=== PATIENT | female | born 1975 ===

== ENCOUNTER 2016-11-25 17:30 | Observation (INO) | payer MEDICAID ==
[2016-11-25 17:30] VITALS: BMI 33.6
--- NOTE | 2016-11-25 17:54 | ED PDOC ---
HPI: Abdomen Time Seen by Provider: 11/25/16 17:41 Chief Complaint (Nursing): Shortness Of Breath History Per: Patient Onset/Duration Of Symptoms: Other (1 month) Location Of Pain/Discomfort: LUQ, LLQ Quality Of Discomfort: Cramping Associated Symptoms: Nausea. denies: Vomiting, Diarrhea, Back Pain, Urinary Symptoms Exacerbating Factors: None Alleviating Factors: None Additional Complaint(s): Left sided lower and mid abd pain intermittently x 1 month worse over past 2 days. Radiates to left leg. Nausea but no vomiting or diarrhea. No urinary sxs. Abnormal Vaginal Bleeding: No Past Medical History Vital Signs: Last Vital Signs Temp 98.4 F 11/25/16 17:39 Pulse 70 11/25/16 17:39 Resp 18 11/25/16 17:39 BP 131/72 11/25/16 17:39 Pulse Ox 100 11/25/16 17:54 - Medical History PMH: Asthma - Surgical History Surgical History: - Family History Family History: States: Diabetes - Home Medications Home Medications: Ambulatory Orders Medication Instructions Recorded Vitamins6 [ 1 tab PO DAILY 11/17/14 Vitamin] Glyburide 2.5 mg PO BID 12/13/14 - Allergies Allergies/Adverse Reactions: Allergies Allergy/AdvReac Type Severity Reaction Status Date / Time No Known Allergies Allergy Verified 12/13/14 04:26 Review of Systems Constitutional: Negative for: Fever Gastrointestinal: Positive for: Nausea, Abdominal Pain Genitourinary Female: Negative for: Dysuria, Frequency, Vaginal Bleeding Musculoskeletal: Negative for: Back Pain Physical Exam - Physical Exam Appears: Positive for: Non-toxic, No Acute Distress Skin: Positive for: Normal Color, Warm, DRY Cardiovascular/Chest: Positive for: Regular Rate, Rhythm Respiratory: Positive for: CNT, Normal Breath Sounds Gastrointestinal/Abdominal: Positive for: Bowel Sounds, Soft, Tenderness (LLQ and LUQ) Back: Negative for: L CVA Tenderness, R CVA Tenderness Extremity: Negative for: Calf Tenderness, Swelling - Laboratory Results Result Diagrams: 11/25/16 18:10 - ECG O2 Sat by Pulse Oximetry: 100 Disposition - Clinical Impression Clinical Impression: Abdominal pain - Patient ED Disposition Is Patient to be Admitted: Transfer of Care - Disposition Disposition: Transfer of Care Disposition Time: 18:59 Condition: FAIR Patient Signed Over To: Giovani Matos
[2016-11-25 18:22] LABS: BASO # 0.1 K/uL (0.0-0.2); BASO % 1.1 % (0.0-2.0); EOS # 0.3 K/uL (0.0-0.7); EOS % 3.3 % (0.0-4.0); HEMOGLOBIN 12.7 g/dL (12.0-16.0); LYMPH # 3.3 K/uL (1.0-4.3); MEAN CELL VOLUME 84.3 fl (81.0-99.0); MEAN CORPUSCULAR HEMOGLOBIN 28.2 pg (27.0-31.0); MEAN CORPUSCULAR HGB CONC 33.5 g/dL (33.0-37.0); MEAN PLATELET VOLUME 8.9 fl (7.2-11.7); MONO % 10.8 % (0.0-10.0); NEUT # 4.9 K/uL (1.8-7.0); NEUT % 50.8 % (50.0-75.0); RBC 4.51 Mil/uL (3.80-5.20); RED CELL DISTRIBUTION WIDTH 14.7 % (11.5-14.5); WHITE BLOOD COUNT 9.6 K/uL (4.8-10.8)
[2016-11-25 18:59] LABS: ALB/GLOB RATIO 1.4 (1.0-2.1); ALBUMIN 4.4 g/dL (3.5-5.0); ALT/SGPT 28 U/L (9-52); AST/SGOT 22 U/L (14-36); BLOOD UREA NITROGEN 10 mg/dl (7-17); CALCIUM 9.6 mg/dL (8.4-10.2); GFR AFRICAN-AMERICAN > 60; GFR NON-AFRICAN AMERICAN > 60
--- NOTE | 2016-11-25 20:50 | ED PDOC ---
- Laboratory Results Result Diagrams: 11/25/16 18:10 11/25/16 18:10 - ECG O2 Sat by Pulse Oximetry: 100 (RA) Pulse Ox Interpretation: Normal Medical Decision Making Medical Decision Making: --Patient signed out to provider by Darryn Cohn MD at 19:00 pending ultrasound --Admit to ED-OBS for abdominal pain as of 19:00 0153: CT EXAM: US Pelvis, Transvaginal CLINICAL HISTORY: 41 years old, female; Pain; Pelvic pain; Patient HX: Pain for 1 month; Additional info: Left sided pain TECHNIQUE: Real-time transvaginal pelvic ultrasound (complete) with image documentation. Transvaginal imaging was used for better evaluation of the endometrium and adnexa. COMPARISON: No relevant prior studies available. FINDINGS: Uterus/cervix: Small nabothian cysts in the cervix. Normal endometrial stripe thickness. No myometrial mass. Right ovary: Unremarkable. No mass. Normal blood flow. Left ovary: Unremarkable. No mass. Normal blood flow. Free fluid: Small amount of fluid in the pelvic cul-de-sac. This is most likely physiologic fluid. IMPRESSION: No acute findings. Provider explained benign nature of CT findings at length to patient. Patient was referred for follow up with clinic for possible specialist referral. Diagnosis: abdominal pain. Condition is stable. Scribe Attestation: Documented by Yesenia Salinas, acting as a scribe for Giovani Matos MD Provider Scribe Attestation: All medical record entries made by the Scribe were at my direction and personally dictated by me. I have reviewed the chart and agree that the record accurately reflects my personal performance of the history, physical exam, medical decision making, and the department course for this patient. I have also personally directed, reviewed, and agree with the discharge instructions and disposition. Disposition - Clinical Impression Clinical Impression: Abdominal pain - POA Present On Arrival: None - Disposition Disposition: Routine/Home Disposition Time: 19:00 Condition: STABLE ED OBSERVATION Date of observation admission: 11/25/16 Time of observation admission: 19:00 - Observation admission statement Patient is being placed in observation because:: Abdominal Pain - Progress Note Progress Note: 11/25/16 Time: 20:30 --Patient is resting comfortably, vital signs stable Time: 22:00 --Patient is resting comfortably, vital signs stable Time: 22:01 Transvaginal Ultrasound: FINDINGS: Uterus/cervix: Small nabothian cysts in the cervix. Normal endometrial stripe thickness. No myometrial mass. Right ovary: Unremarkable. No mass. Normal blood flow. Left ovary: Unremarkable. No mass. Normal blood flow. Free fluid: Small amount of fluid in the pelvic cul-de-sac. This is most likely physiologic fluid. IMPRESSION: No acute findings. Time: 22:38 --Pending CT Abdomen/Pelvis PO and IV contrast 11/25/16 23:25 Time: 23:30 --Patient is resting comfortably, vital signs stable 11/26/16 00:55 Time: 0100: --Patient is resting comfortably, vital signs stable 11/26/16 02:30 Time: 0230: --Patient is resting comfortably, vital signs stable 11/26/16 04:00 Time: 0400: --Patient is resting comfortably, vital signs stable 11/26/16 05:30 Time: 0530: --Patient is resting comfortably, vital signs stable
[2016-11-25] MEDS ORDERED: Iohexol 240 (50 ml) PO ONE (22:38)
[2016-11-25] MEDS ORDERED: Iohexol 240 (50 ml) ONE (22:40)
[2016-11-26] MEDS ORDERED: Iohexol 300 100 ML IJ ONE (01:10)
[2016-11-26] MEDS ORDERED: Sodium Chloride 0.9% 50 ML IV ONE (01:10)
--- NOTE | 2016-11-26 01:41 | CT ---
EXAM: CT Abdomen and Pelvis With Intravenous Contrast CLINICAL HISTORY: 41 years old, female; Pain; Abdominal pain; Localized; Left; Prior surgery; Surgery date: 6+ months; Surgery type: C- section x3; Additional info: Abd pain TECHNIQUE: Axial computed tomography images of the abdomen and pelvis with intravenous contrast. This CT exam was performed using one or more of the following dose reduction techniques: automated exposure control, adjustment of the mA and/or kV according to patient size, and/or use of iterative reconstruction technique. Coronal and sagittal reformatted images were created and reviewed. CONTRAST: 95 mL of [id number] administered intravenously. COMPARISON: None FINDINGS: Lower thorax: The bilateral lung bases are clear. ABDOMEN: Liver: No acute findings. Gallbladder and bile ducts: The gallbladder is decompressed. No calcified stones. No significant intra- or extrahepatic biliary ductal dilation. Pancreas: Enhances homogeneously. No ductal dilation. No discrete mass. Spleen: No acute findings. Adrenals: No acute findings. Kidneys and ureters: No acute findings. No hydronephrosis or renal calculi. No discrete solid mass. PELVIS: Bladder: No acute findings. Reproductive: No acute findings. Appendix: The air filled appendix is of normal caliber (series 2, image 50; series 601, image 58) . ABDOMEN and PELVIS: Stomach and bowel: No obstruction. No mucosal thickening. Peritoneum: No significant fluid collection. No free air. Lymph nodes: No pathologically enlarged lymph nodes. Vasculature: Unremarkable. Bones: No acute fracture. IMPRESSION: No acute intra-abdominal pathology, as detailed above.
--- NOTE | 2016-11-26 08:30 | US ---
HISTORY: left sided pain COMPARISON: Transvaginal pelvic ultrasound performed 05/19/14 TECHNIQUE: Transvaginal pelvic ultrasound FINDINGS: UTERUS: Measures 8.3 x 5.4 x 4.6 cm. Anteverted. Heterogeneous echotexture limits evaluation for small masses or fibroids. ENDOMETRIUM: Measures 4 mm in diameter. CERVIX: Small nabothian cysts. RIGHT OVARY: Measures 2.9 x 2.6 x 1.0 cm. Blood flow is demonstrated. LEFT OVARY: Measures 2.5 x 2.1 x 1.5 cm. Blood flow is demonstrated. FREE FLUID: Small pelvic free fluid. OTHER FINDINGS: None. IMPRESSION: No acute findings. See above. Preliminary impression was provided by virtual [facility].
[2016-11-26 11:57] VITALS: BP 129/65; PULSE 74; RESP 16; TEMP 98.2; O2SAT 100
--- NOTE | 2016-12-02 08:21 | CARD ---
APPROVED REPORT EKG Measurement Heart [id number] <Conclusion> Normal sinus rhythm Possible Left atrial enlargement Borderline ECG
== END 2016-11-26 02:00 | disposition home or self-care (01) ==
LOC: H.ER 17:30 → H.EROBSV 19:00
PROVIDERS: ADMIT Emergency Medicine; ATTEND Emergency Medicine
DX: R10.9 Unspecified abdominal pain (principal); J45.909 Unspecified asthma, uncomplicated

== ENCOUNTER 2017-04-13 14:45 | Inpatient (IN) | payer MEDICAID ==
[2017-04-13 14:45] VITALS: BMI 33.6
[2017-04-13] MEDS ORDERED: Sodium Chloride 0.9% 1,000 ML IV STA ×2 (14:59→16:37)
[2017-04-13] MEDS ORDERED: Albuterol-Ipratrop 3 mg / 0.5 (3 ml) UD IH STA (14:59)
--- NOTE | 2017-04-13 15:10 | ED PDOC ---
HPI: SOB/CHF/COPD Time Seen by Provider: 04/13/17 14:51 Chief Complaint (Nursing): Shortness Of Breath Chief Complaint (Provider): Shortness of breath History Per: Patient History/Exam Limitations: no limitations Onset/Duration Of Symptoms: Days (4) Current Symptoms Are (Timing): Still Present Additional Complaint(s): Patient is a 41 y/o female with a past medical history of asthma referred by a [facility] to the ED for evaluation of her shortness of breath, wheezing, and productive cough that has been ongoing for four days. Also reports a fever and production of yellow sputum. Notes no improvement from nebulizer provided in [facility]. Denies any other complaints. PCP: Dr. Hong Past Medical History Reviewed: Historical Data, Nursing Documentation, Vital Signs Vital Signs: Last Vital Signs Temp 98.6 F 04/13/17 14:46 Pulse 96 H 04/13/17 14:46 Resp 20 04/13/17 14:46 BP 115/58 L 04/13/17 14:46 Pulse Ox 98 04/13/17 15:18 - Medical History PMH: Asthma - Surgical History Surgical History: No Surg Hx, - Family History Family History: States: Diabetes - Social History Current smoker - smoking cessation education provided: No Ex-Smoker (has not smoked in the last 12 months): No Alcohol: Social Drugs: Denies - Immunization History Hx Tetanus Toxoid Vaccination: No Hx Influenza Vaccination: No Hx Pneumococcal Vaccination: No - Home Medications Home Medications: Ambulatory Orders Medication Instructions Recorded Vitamins6 [ 1 tab PO DAILY 11/17/14 Vitamin] Glyburide 2.5 mg PO BID 12/13/14 Dicyclomine [Bentyl] 20 mg PO Q12 PRN #20 tab 11/26/16 - Allergies Allergies/Adverse Reactions: Allergies Allergy/AdvReac Type Severity Reaction Status Date / Time No Known Allergies Allergy Verified 12/13/14 04:26 Review of Systems ROS Statement: Except As Marked, All Systems Reviewed And Found Negative Constitutional: Positive for: Fever Respiratory: Positive for: Cough (productive), Shortness of Breath, Sputum ( yellow), Wheezing Physical Exam - Reviewed Nursing Documentation Reviewed: Yes Vital Signs Reviewed: Yes - Physical Exam Appears: Positive for: Well, Non-toxic, No Acute Distress Head Exam: Positive for: ATRAUMATIC, NORMAL INSPECTION, NORMOCEPHALIC Skin: Positive for: Normal Color, Warm, Dry Eye Exam: Positive for: Normal appearance ENT: Positive for: Pharyngeal Erythema. Negative for: Tonsillar Exudate Neck: Positive for: Normal Cardiovascular/Chest: Positive for: Regular Rate, Rhythm. Negative for: Murmur Respiratory: Positive for: Decreased Breath Sounds, Rhonchi. Negative for: Accessory Muscle Use, Wheezing, Respiratory Distress Gastrointestinal/Abdominal: Positive for: Normal Exam, Soft. Negative for: Tenderness Extremity: Positive for: Normal ROM. Negative for: Pedal Edema, Swelling Neurologic/Psych: Positive for: Alert, Oriented (x3). Negative for: Motor/ Sensory Deficits - Laboratory Results Result Diagrams: 04/13/17 15:43 04/13/17 15:43 - ECG O2 Sat by Pulse Oximetry: 100 (RA) Pulse Ox Interpretation: Normal - Progress Re-evaluation Time: 16:38 Condition: Improved - Critical Care Total Time (In Min): 30 Documented Critical Care: Time excludes all time spent performint seperately billable procedures Medical Decision Making Medical Decision Makin:59 Initial Impression: Shortness of breath Initial Plan: Labs: CMP, CBC ED Urine Chest x-ray Albuterol 3 mL IH MethylPrednisolone 125 mg IVP Normal Saline 1 L IV Peak flow assessment pre and post treatment Influenza test Rapid strep group test Reevaluation Scribe Attestation: Documented by Stephy Quinonez acting as a scribe for Darryn Cohn MD. Provider Scribe Attestation: All medical record entries made by the Scribe were at my direction and personally dictated by me. I have reviewed the chart and agree that the record accurately reflects my personal performance of the history, physical exam, medical decision making, and the department course for this patient. I have also personally directed, reviewed, and agree with the discharge instructions and disposition. Disposition - Clinical Impression Clinical Impression: Pneumonia, Sepsis - Patient ED Disposition Is Patient to be Admitted: Yes - Disposition Disposition Time: 16:38 Condition: FAIR Forms: [employer] ([place]) - Pt Status Changed To: Hospital Disposition Of: Inpatient - Admit Certification Admit to Inpatient:: After my assessment, the patient will require hospitalization for at least two midnights. This is because of the severity of symptoms shown, intensity of services needed, and/or the medical risk in this patient being treated as an outpatient. - POA Present On Arrival: None
[2017-04-13] MEDS ORDERED: Albuterol-Ipratrop 3 mg / 0.5 (3 ml) UD ONE (15:24)
[2017-04-13 16:03] LABS: BASO # 0.1 K/uL (0.0-0.2); BASO % 0.6 % (0.0-2.0); EOS # 0.4 K/uL (0.0-0.7); EOS % 4.4 % (0.0-4.0); HEMATOCRIT 36.7 % (34.0-47.0); LYMPH # 2.4 K/uL (1.0-4.3); LYMPH % 24.3 % (20.0-40.0); MEAN CELL VOLUME 82.5 fl (81.0-99.0); MEAN CORPUSCULAR HEMOGLOBIN 27.1 pg (27.0-31.0); MEAN CORPUSCULAR HGB CONC 32.9 g/dL (33.0-37.0); MEAN PLATELET VOLUME 8.6 fl (7.2-11.7); MONO # 0.8 K/uL (0.0-0.8); NEUT # 6.2 K/uL (1.8-7.0); NEUT % 62.7 % (50.0-75.0); RED CELL DISTRIBUTION WIDTH 15.2 % (11.5-14.5); WHITE BLOOD COUNT 9.9 K/uL (4.8-10.8)
[2017-04-13 16:12] LABS: ALB/GLOB RATIO 1.3 (1.0-2.1); ALKALINE PHOSPHATASE 86 U/L (38-126); ALT/SGPT 29 U/L (9-52); AST/SGOT 23 U/L (14-36); BILIRUBIN,TOTAL 0.3 mg/dl (0.2-1.3); BLOOD UREA NITROGEN 9 mg/dl (7-17); CALCIUM 9.5 mg/dL (8.4-10.2); CARBON DIOXIDE 19 mmol/L (22-30); CHLORIDE 110 mmol/L (98-107); GFR AFRICAN-AMERICAN > 60; GLUCOSE,RANDOM 113 mg/dL (65-105); POTASSIUM 3.8 MMOL/L (3.6-5.0); SODIUM 143 mmol/l (132-148); TOTAL PROTEIN 7.9 G/DL (6.3-8.2)
[2017-04-13] MEDS ORDERED: Azithromycin 500 MG in Sodium Chloride 0.9% 250 ML IVPB STA (16:13)
[2017-04-13] MEDS ORDERED: cefTRIAXone IV 1 gm in Dextros 50 ML IVPB STA (16:13)
--- NOTE | 2017-04-13 16:13 | RAD ---
HISTORY: cough COMPARISON: Chest radiograph dated 03/19/2014 TECHNIQUE: Chest PA and lateral FINDINGS: LUNGS: Focal right lower lobe infiltrate projecting between the right posterior 7th and 8th ribs. PLEURA: No significant pleural effusion identified. No pneumothorax apparent. CARDIOVASCULAR: Normal. OSSEOUS STRUCTURES: No significant abnormalities. VISUALIZED UPPER ABDOMEN: Normal. OTHER FINDINGS: None. IMPRESSION: Focal right lower lobe infiltrate. Findings conveyed to Dr. Cohn by Dr. Grissom at 4:10 p.m. on 04/13/2017.
[2017-04-13] MEDS ORDERED: Azithromycin 500 MG IV IVPB ONE (16:24)
[2017-04-13] MEDS ORDERED: cefTRIAXone IV 1 gm in Dextros 0 ML IVPB ONE (16:24)
[2017-04-13 16:30] LABS: VENOUS BLOOD GAS BASE EXCESS -3.6 mmol/L (0.0-2.0); VENOUS BLOOD GAS PCO2 33 mmHg (40-60)
[2017-04-13] MEDS ORDERED: Piperacillin/Tazobact 3.375 GM in Sodium Chloride 0.9% 100 ML IVPB STA (16:35)
--- NOTE | 2017-04-13 20:14 | CP.PCM.HP ---
History of Present Illness - History of Present Illness History of Present Illness: 41 y/o F with PMHx remarkable for metabolic syndrome and intermittent asthma was sent from [facility] to [facility] ED with 4 day history of progressive dry cough associated with shortness of breath. Pt reports cough started about Monday afternoon and has worsened daily. Cough was dry originally, became productive for 2 days, then returned to being dry again today. She reports she had several days of fever reaching approx 100.9 F with URI symptoms. Cough is associated the chest tightness, she attempted her albuterol inhaler at home every 4 hours without improvement. She reports her kids and all had a cough/URI last week. Symptoms worsened so she then went to [facility] for evaluation. At the [facility] she was given Duo-Neb treatment which failed to improve her symptoms. After failure of improvement, she was sent via EMS to ED for further evalaution and treatment. At bedside examination, pt still complains of SOB, with dry cough, mild chest tightness. She denies any fever/chills, lightheadedness, palpitations , N/V/D/C, urinary symptoms, numbness, tingling. ROS: as per HPI, 10 systems reviewed, found to be negative PMD: Dr. Ashleigh Hong PMHx: intermittent asthma, metabolic syndrome, Vit D def Meds: Ventolin HFA 108 ALL: NKDA PHosphx: denies any recent hospitalizations. Denies any hx of intubation or hospitalizations for asthma or pneumonia PSurghx: foot surgery age 10, x3 OBhx: LMP: April 03, 2017, monthly, moderate bleeds SocialHx: former smoker, quit 3 years ago, <0.5PPD, social ETOH, denies drug abuse -lives at home with and kids -code status: full code -next of kin: mother, Su Lemos FamilyHx: denies hx of CA, CAD, PA, stroke ED COURSE: Vitals: T 98.6, BP 115/58, HR 96, RR 20, POX 100% RA Labs: CBC: 9.9>12.1/36.7<305 CMP: elevated CO2, BUN/Cr: wnl Lactate: 2.9 VBG: PO2: 67, PCO2 33 Imaging: CXR: focal right lower lobe infiltrate Treatment: Ceftriaxone 1gm Vancomycin 1gm Zosyn 3.375 Azithromycin 500mg 2L NS Present on Admission - Present on Admission Any Indicators Present on Admission: No Past Patient History - Past Social History Alcohol: Social Drugs: Denies - CARDIAC Hx Cardiac Disorders: No - PULMONARY Hx Respiratory Disorders: Yes (ASTHMA) - NEUROLOGICAL Hx Neurological Disorder: No - HEENT Hx HEENT Problems: No - RENAL Hx Chronic Kidney Disease: No - ENDOCRINE/METABOLIC Hx Endocrine Disorders: No - HEMATOLOGICAL/ONCOLOGICAL Hx Blood Disorders: No - INTEGUMENTARY Hx Dermatological Problems: No - MUSCULOSKELETAL/RHEUMATOLOGICAL Hx Musculoskeletal Disorders: No - GENITOURINARY/GYNECOLOGICAL Hx Genitourinary Disorders: No - PSYCHIATRIC Hx Psychophysiologic Disorder: No - SURGICAL HISTORY Hx Tubal Ligation: Yes (2014) Other/Comment: FOOT SX; thryiod lump bx - ANESTHESIA Hx Anesthesia: Yes Hx Anesthesia Reactions: No Meds Allergies/Adverse Reactions: Allergies Allergy/AdvReac Type Severity Reaction Status Date / Time No Known Allergies Allergy Verified 12/13/14 04:26 Physical Exam - Constitutional Appears: Non-toxic, No Acute Distress - Head Exam Head Exam: ATRAUMATIC, NORMOCEPHALIC - Eye Exam Eye Exam: EOMI. absent: Conjunctival injection, Scleral icterus Pupil Exam: PERRL - ENT Exam ENT Exam: Mucous Membranes Moist - Expanded ENT Exam Expanded Mouth exam: normal external inspection Throat exam: Normal Inspection. absent: Post Pharyngeal Edema, Post Pharyngeal Erythema, Tonsillar Erythema - Neck Exam Neck exam: Positive for: Full Rom. Negative for: Lymphadenopathy - Respiratory Exam Respiratory Exam: Decreased Breath Sounds, Rhonchi (rhonci r lobe), NORMAL BREATHING PATTERN. absent: Accessory Muscle Use, Chest Wall Tenderness, Clear to Auscultation Bilateral, Rales, Wheezes, Respiratory Distress - Cardiovascular Exam Cardiovascular Exam: REGULAR RHYTHM, RRR, +S1, +S2. absent: Gallop, JVD, Rubs, Systolic Murmur - GI/Abdominal Exam GI & Abdominal Exam: Normal Bowel Sounds, Soft. absent: Tenderness - Extremities Exam Extremities exam: Positive for: normal inspection, pedal pulses present. Negative for: calf tenderness, pedal edema, tenderness - Neurological Exam Neurological exam: Alert, CN II-XII Intact, Oriented x3, Reflexes Normal - Psychiatric Exam Psychiatric exam: Normal Affect, Normal Mood - Skin Skin Exam: Dry, Intact, Normal Color, Warm Results - Vital Signs Recent Vital Signs: Last Vital Signs Temp 98.2 F 04/13/17 19:57 Pulse 82 04/13/17 19:57 Resp 14 04/13/17 19:57 BP 111/71 04/13/17 19:57 Pulse Ox 99 04/13/17 19:57 - Labs Result Diagrams: 04/13/17 15:43 04/13/17 15:43 Labs: Laboratory Results - last 24 hr 04/13/17 04/13/17 04/13/17 15:00 15:00 15:43 WBC 9.9 RBC 4.45 Hgb 12.1 Hct 36.7 MCV 82.5 MCH 27.1 MCHC 32.9 L RDW 15.2 H Plt Count 305 MPV 8.6 Neut % (Auto) 62.7 Lymph % (Auto) 24.3 Bennett % (Auto) 8.0 Eos % (Auto) 4.4 H Baso % (Auto) 0.6 Neut # 6.2 Lymph # 2.4 Bennett # 0.8 Eos # 0.4 Baso # 0.1 pO2 VBG pH VBG pCO2 VBG HCO3 VBG Total CO2 VBG O2 Sat (Calc) VBG Base Excess VBG Potassium A-a O2 Difference Glucose Lactate FiO2 Sodium Potassium Chloride Carbon Dioxide Anion Gap BUN Creatinine Est GFR ( Amer) Est GFR (Non-Af Amer) Random Glucose Calcium Total Bilirubin AST ALT Alkaline Phosphatase Total Protein Albumin Globulin Albumin/Globulin Ratio Venous Blood Potassium Influenza Typ A,B (EIA) Negative for flu a/b Grp A Beta Strep Ag Negative 04/13/17 04/13/17 15:43 16:27 WBC RBC Hgb Hct MCV MCH MCHC RDW Plt Count MPV Neut % (Auto) Lymph % (Auto) Bennett % (Auto) Eos % (Auto) Baso % (Auto) Neut # Lymph # Bennett # Eos # Baso # pO2 67 H VBG pH 7.40 VBG pCO2 33 L VBG HCO3 22.0 VBG Total CO2 21.4 L VBG O2 Sat (Calc) 97.6 H VBG Base Excess -3.6 L VBG Potassium 3.3 L A-a O2 Difference 41.0 Glucose 109 H Lactate 2.9 H FiO2 21.0 Sodium 143 141.0 Potassium 3.8 Chloride 110 H 107.0 Carbon Dioxide 19 L Anion Gap 18 BUN 9 Creatinine 0.6 L Est GFR ( Amer) > 60 Est GFR (Non-Af Amer) > 60 Random Glucose 113 H Calcium 9.5 Total Bilirubin 0.3 AST 23 ALT 29 Alkaline Phosphatase 86 Total Protein 7.9 Albumin 4.5 Globulin 3.4 Albumin/Globulin Ratio 1.3 Venous Blood Potassium 3.3 L Influenza Typ A,B (EIA) Grp A Beta Strep Ag Assessment & Plan - Assessment and Plan (Free Text) Assessment: 41 y/o female with PMHx of metabolic syndrome and intermittent asthma admitted for community acquired pneumonia and lactic acidosis. Plan: 1) Community Acquired Pneumonia -CXR exhibits focal right lower lobe infiltrate -Pt does not meet SIRS criteria -afebrile -qSOFA: 0 -WBC: wnl -Platelets: wnl -Lactate 2.6->3.6 -BUN/Cr: wnl -influenza/strep: neg/neg -Procalcitonin: pending -f/u blood/throat cultures -s/p Vancomycin, Ceftriaxone, Azithromycin, Zosyn in ED -s/p 2L NS in ED -Duo-Neb 3mL PRN -Tyleonol 650mg PRN fever -Ceftriaxone 1gm IV QD -Azithromycin 500mg IV QD -monitor vitals -f/u am CBC/CMP 2) Intermittent Asthma -Duo-Neb PRN Q6H 3) Diet -regular diet 4) DVT Ppx: -SCDs overnight -CrCl -Lovenox 40mg SC QD 5) Code Status -full code
[2017-04-13 20:56] LABS: VENOUS BLOOD GAS BASE EXCESS -4.6 mmol/L (0.0-2.0); VENOUS BLOOD GAS PCO2 32 mmHg (40-60); VENOUS BLOOD PH 7.39 (7.32-7.43)
[2017-04-14] MEDS: Albuterol-Ipratrop 3 mg / 0.5 (3 ml) UD INH PRN (06:23)
[2017-04-14 06:24] LABS: HEMATOCRIT 33.9 % (34.0-47.0); MEAN CELL VOLUME 82.8 fl (81.0-99.0); MEAN CORPUSCULAR HEMOGLOBIN 27.2 pg (27.0-31.0); MEAN CORPUSCULAR HGB CONC 32.8 g/dL (33.0-37.0); RED CELL DISTRIBUTION WIDTH 14.9 % (11.5-14.5); WHITE BLOOD COUNT 9.9 K/uL (4.8-10.8)
[2017-04-14 06:38] LABS: ALB/GLOB RATIO 1.3 (1.0-2.1); ALKALINE PHOSPHATASE 67 U/L (38-126); ALT/SGPT 30 U/L (9-52); AST/SGOT 18 U/L (14-36); BILIRUBIN,TOTAL 0.2 mg/dl (0.2-1.3); BLOOD UREA NITROGEN 6 mg/dl (7-17); CARBON DIOXIDE 21 mmol/L (22-30); CHLORIDE 110 mmol/L (98-107); GFR AFRICAN-AMERICAN > 60; GLUCOSE,RANDOM 147 mg/dL (65-105); POTASSIUM 4.5 MMOL/L (3.6-5.0); SODIUM 141 mmol/l (132-148); TOTAL PROTEIN 6.9 G/DL (6.3-8.2)
--- NOTE | 2017-04-14 08:53 | CP.PCM.PN ---
Subjective - Date & Time of Evaluation Date of Evaluation: 04/14/17 Time of Evaluation: 08:45 - Subjective Subjective: 41 y/o female seen at bedside this morning for coughing x 5 days with associated shortness of breath and chest tightness. Pt states that her symptoms were resolving throughout the night but recurred at 5:30 this morning when she attempted to lay flat in bed. Once lying vertical, she states she began to experience a similar chest tightness to her previous discomfort, accompanied by a dry cough. Pt denies having palpitations. Pt denies having a fever since 3 days ago when her temperature reached 100.9 at home. At present, patient admits to a mild headache and chest soreness but denies all other symptoms related to chief complaint. Pt denies chills, N/V, diarrhea, or constipation. Pt denies calf tenderness and admits to walking up and down the floor throughout the day. Objective - Vital Signs/Intake and Output Vital Signs (last 24 hours): Temp Pulse Resp BP Pulse Ox 98.6 F 77 20 105/66 98 04/14/17 08:04 04/14/17 08:04 04/14/17 08:04 04/14/17 08:04 04/14/17 08:04 - Medications Medications: Current Medications Acetaminophen (Tylenol 325mg Tab) 650 mg PO Q6 PRN PRN Reason: Fever >100.4 F Albuterol/Ipratropium (Duoneb 3 Mg/0.5 Mg (3 Ml) Ud) 3 ml INH RQ6 PRN PRN Reason: Shortness of Breath Last Admin: 04/14/17 06:23 Dose: 3 ml Enoxaparin Sodium (Lovenox) 40 mg SC DAILY RADHA PRN Reason: Protocol Ceftriaxone Sodium (Rocephin Iv 1 Gm Duplex) 50 mls @ 50 mls/hr IVPB DAILY RADHA PRN Reason: Protocol Azithromycin 500 mg/ Sodium (Chloride) 250 mls @ 250 mls/hr IVPB DAILY RADHA PRN Reason: Protocol - Labs Labs: 04/14/17 05:20 04/14/17 05:20 - Constitutional Appears: Well, Non-toxic, No Acute Distress - Head Exam Head Exam: ATRAUMATIC, NORMOCEPHALIC - Eye Exam Eye Exam: Normal appearance. absent: Scleral icterus Pupil Exam: NORMAL ACCOMODATION, PERRL - ENT Exam ENT Exam: Mucous Membranes Moist, Normal Exam - Neck Exam Neck Exam: Full ROM, Normal Inspection. absent: Lymphadenopathy, Tenderness Additional comments: neck is supple, no JVD noted - Respiratory Exam Respiratory Exam: Rhonchi, Wheezes. absent: Chest Wall Tenderness, Respiratory Distress Additional comments: rhonchi and wheezes noted to right lower lobe - Cardiovascular Exam Cardiovascular Exam: REGULAR RHYTHM, +S1, +S2. absent: JVD - GI/Abdominal Exam GI & Abdominal Exam: Soft, Normal Bowel Sounds. absent: Distended, Tenderness - Extremities Exam Extremities Exam: Normal Capillary Refill, Normal Inspection. absent: Calf Tenderness, Pedal Edema - Neurological Exam Neurological Exam: Alert, Awake, CN II-XII Intact, Oriented x3 - Psychiatric Exam Psychiatric exam: Normal Affect, Normal Mood - Skin Skin Exam: Dry, Intact, Normal Color, Warm Assessment and Plan - Assessment and Plan (Free Text) Assessment: 41 y/o female with PMHx of metabolic syndrome and intermittent asthma admitted to hospital for community-acquired pneumonia and lactic acidosis Plan: 1) Community-Acquired Pneumonia -CXR exhibits focal right lower lobe infiltrate b/n 7th and 8th ribs -afebrile, WBC WNL at 9.9 -Lactate 2.9->3.6 -VBG pO2 67-->75 -BUN/Cr WNL -Influenza/strep: neg/neg -throat culture neg for grp A strep -IV fluid hydration -repeat lactate = 2.2 after IV fluid bolus given -f/u procalcitonin -f/u blood cultures -f/u Mycoplasma IgM -f/u Legionella Ag urine -c/w Duoneb 3mL PRN -c/w Tylenol 650mg PRN fever, headache -c/w Ceftriaxone 1gm IV QD -c/w Azithromycin 500mg IV QD -VSS, will continue to monitor -monitor CBC/CMP 2) Intermittent Asthma -Duoneb PRN Q6H 3) Diet -Regular diet 4) DVT Prophylaxis: -SCDs overnight -CrCl -c/w Lovenox 40mg SC QD -c/w ambulation on floors 5) Code Status -full code
[2017-04-14] MEDS: Enoxaparin 40 mg Syringe SC SCH (09:12)
[2017-04-14] MEDS: Azithromycin 500 MG in Sodium Chloride 0.9% 250 ML IVPB SCH (09:13)
[2017-04-14] MEDS: cefTRIAXone IV 1 gm in Dextros 50 ML IVPB SCH (09:13)
[2017-04-14] MEDS ORDERED: Sodium Chloride 0.9% 1,000 ML IV SCH ×2 (11:00)
--- NOTE | 2017-04-14 14:08 | PQF GENQUE ---
This form is a permanent part of the medical record 04/14/17 Dr. Iván Reeder, Please clarify if the Intermittent Asthma is with or without exacerbation ( acuity) Admitted with fever, cough and SOB. + sick contacts. History of Intermittent asthma. CXR RLL infiltrate.Treatment includes: IVAB, nebulizers and in the ER received Solumedrol as well. Clarification of your documentation is requested to better reflect the severity of illness and intensity of treatment of your patient. Indicators present [] Specify: [] [] Specify: [] [] Specify: [] [] Specify: [] Location in the medical record that reflects the above clinical findings: [] Treatment Provided: [] PHYSICIAN'S RESPONSE Astma with exacerbation Based on your medical judgment of the clinical indicators outlined above please clarify the following: [] Practitioner response [] If unable to determine, please check the box, sign and date. Present On Admission (POA) Indicator: [] Present at the time of admission [] Not present at the time of admission [] Clinically Undetermined In responding to this query, please exercise your independent professional judgment. The fact that a question is asked does not imply that any particular answer is desired or expected. Thank you for your clarification on this documentation. If you have any questions please call:[phone] * Thank you, Mahogany He RN [facility]
[2017-04-14] MEDS: Sodium Chloride 0.9% 1,000 ML IV SCH (18:17)
[2017-04-15] MEDS: Albuterol-Ipratrop 3 mg / 0.5 (3 ml) UD INH PRN ×2 (02:54→10:02)
[2017-04-15] MEDS: Sodium Chloride 0.9% 1,000 ML IV SCH (03:21)
[2017-04-15] MEDS: cefTRIAXone IV 1 gm in Dextros 50 ML IVPB SCH (09:32)
[2017-04-15] MEDS: Enoxaparin 40 mg Syringe SC SCH (09:34)
[2017-04-15] MEDS: Azithromycin 500 MG in Sodium Chloride 0.9% 250 ML IVPB SCH (09:41)
--- NOTE | 2017-04-15 12:16 | RAD ---
HISTORY: pneumonia COMPARISON: Comparison made with chest radiograph 04/13/2017. TECHNIQUE: Chest PA and lateral FINDINGS: LUNGS: Re- demonstrated is a right lower lobe atelectasis/ infiltrate. . Suspect minor left basilar atelectasis. PLEURA: No significant pleural effusion identified. No pneumothorax apparent. CARDIOVASCULAR: Normal. OSSEOUS STRUCTURES: Minor multilevel degenerative spondylosis of the thoracic spine. VISUALIZED UPPER ABDOMEN: Normal. OTHER FINDINGS: None. IMPRESSION: Right lower lobe atelectasis and or infiltrate. Suspect mild left basilar atelectasis.
--- NOTE | 2017-04-15 15:04 | CP.PCM.PN ---
Subjective - Date & Time of Evaluation Date of Evaluation: 04/15/17 Time of Evaluation: 09:00 - Subjective Subjective: Patient seen and examined this morning. No acute events overnight. Patient states she feels improvement though continues with night time coughing and sob/ wheezing. No fever, chills overnight. Tolerating PO well. No other complaints offered at this time. Objective - Vital Signs/Intake and Output Vital Signs (last 24 hours): Temp Pulse Resp BP Pulse Ox 98.3 F 76 18 123/84 97 04/15/17 14:00 04/15/17 14:00 04/15/17 14:00 04/15/17 14:00 04/15/17 14:00 - Medications Medications: Current Medications Acetaminophen (Tylenol 325mg Tab) 650 mg PO Q6 PRN PRN Reason: Fever >100.4 F Acetaminophen (Tylenol 325mg Tab) 650 mg PO Q6 PRN PRN Reason: Headache Last Admin: 04/15/17 03:20 Dose: 650 mg Albuterol/Ipratropium (Duoneb 3 Mg/0.5 Mg (3 Ml) Ud) 3 ml INH RQ6 PRN PRN Reason: Shortness of Breath Last Admin: 04/15/17 10:02 Dose: 3 ml Enoxaparin Sodium (Lovenox) 40 mg SC DAILY RADHA PRN Reason: Protocol Last Admin: 04/15/17 09:34 Dose: 40 mg Famotidine (Pepcid) 20 mg PO DAILY RADHA Ceftriaxone Sodium (Rocephin Iv 1 Gm Duplex) 50 mls @ 50 mls/hr IVPB DAILY RADHA PRN Reason: Protocol Last Admin: 04/15/17 09:32 Dose: 50 mls/hr Azithromycin 500 mg/ Dextrose 250 mls @ 250 mls/hr IVPB DAILY RADHA PRN Reason: Protocol Montelukast Sodium (Singulair) 10 mg PO HS RADHA Prednisone (Prednisone Tab) 40 mg PO DAILY RADHA - Labs Labs: 04/14/17 05:20 04/14/17 05:20 - Constitutional Appears: Non-toxic, No Acute Distress - Head Exam Head Exam: NORMAL INSPECTION - Eye Exam Eye Exam: Normal appearance - Respiratory Exam Respiratory Exam: Wheezes (bilateral bases expiratory), NORMAL BREATHING PATTERN. absent: Respiratory Distress - Cardiovascular Exam Cardiovascular Exam: RRR, +S1, +S2 - GI/Abdominal Exam GI & Abdominal Exam: Soft, Normal Bowel Sounds. absent: Tenderness - Extremities Exam Extremities Exam: Normal Inspection - Neurological Exam Neurological Exam: Alert, Awake, Oriented x3 - Psychiatric Exam Psychiatric exam: Normal Affect, Normal Mood - Skin Skin Exam: Dry, Intact, Normal Color, Warm Assessment and Plan - Assessment and Plan (Free Text) Assessment: 41 y/o female with PMHx of metabolic syndrome and intermittent asthma admitted to hospital for community-acquired pneumonia and lactic acidosis. Plan: 1) Community-Acquired Pneumonia -CXR exhibits focal right lower lobe infiltrate b/n 7th and 8th ribs -CXR repeated this morning, stable appearing -afebrile, WBC WNL -Lactate 2.9->3.6 ->2.2 -> 1.1 with IV hydration -BUN/Cr WNL -Influenza/strep: neg/neg -f/u procalcitonin -f/u blood cultures -f/u Mycoplasma IgM -f/u Legionella Ag urine -c/w Duoneb 3mL PRN -c/w Tylenol 650mg PRN fever, headache -c/w Ceftriaxone 1gm IV QD -c/w Azithromycin 500mg IV QD -VSS, will continue to monitor -monitor CBC/CMP -transfer to med/surg 2) Intermittent Asthma, worsening -Duoneb PRN Q6H -prednisone 40mg daily added -singular 10mg HS added -f/u response 3) DVT Prophylaxis: -c/w Lovenox 40mg SC QD -c/w ambulation on floors
[2017-04-16 01:54] VITALS: RESP 20
[2017-04-16 08:28] VITALS: BP 121/75; PULSE 68; TEMP 97.8; O2SAT 95
[2017-04-16] MEDS: cefTRIAXone IV 1 gm in Dextros 50 ML IVPB SCH (09:14)
--- NOTE | 2017-04-16 11:45 | CP.PCM.PN ---
Subjective - Date & Time of Evaluation Date of Evaluation: 04/16/17 Time of Evaluation: 10:00 - Subjective Subjective: No acute overnight events. Patient seen and examined at the bedside this morning. No complaints. Denies cough, dyspnea, fever, chills. Objective - Vital Signs/Intake and Output Vital Signs (last 24 hours): Temp Pulse Resp BP Pulse Ox 97.8 F 68 20 121/75 95 04/16/17 08:28 04/16/17 08:28 04/16/17 08:28 04/16/17 08:28 04/16/17 08:28 - Medications Medications: Current Medications Acetaminophen (Tylenol 325mg Tab) 650 mg PO Q6 PRN PRN Reason: Fever >100.4 F Acetaminophen (Tylenol 325mg Tab) 650 mg PO Q6 PRN PRN Reason: Headache Last Admin: 04/16/17 09:57 Dose: 650 mg Albuterol/Ipratropium (Duoneb 3 Mg/0.5 Mg (3 Ml) Ud) 3 ml INH RQ6 PRN PRN Reason: Shortness of Breath Last Admin: 04/15/17 10:02 Dose: 3 ml Enoxaparin Sodium (Lovenox) 40 mg SC DAILY RADHA PRN Reason: Protocol Last Admin: 04/15/17 09:34 Dose: 40 mg Famotidine (Pepcid) 20 mg PO DAILY COUNTS INCLUDE 234 BEDS AT THE [facility] Last Admin: 04/16/17 09:14 Dose: 20 mg Ceftriaxone Sodium (Rocephin Iv 1 Gm Duplex) 50 mls @ 50 mls/hr IVPB DAILY RADHA PRN Reason: Protocol Last Admin: 04/16/17 09:14 Dose: 50 mls/hr Azithromycin 500 mg/ Dextrose 250 mls @ 250 mls/hr IVPB DAILY RADHA PRN Reason: Protocol Last Admin: 04/16/17 09:15 Dose: 250 mls/hr Montelukast Sodium (Singulair) 10 mg PO HS COUNTS INCLUDE 234 BEDS AT THE [facility] Last Admin: 04/15/17 21:25 Dose: 10 mg Prednisone (Prednisone Tab) 40 mg PO DAILY COUNTS INCLUDE 234 BEDS AT THE [facility] Last Admin: 04/16/17 09:14 Dose: 40 mg - Labs Labs: 04/14/17 05:20 04/14/17 05:20 - Constitutional Appears: Well, Non-toxic, No Acute Distress - ENT Exam ENT Exam: Mucous Membranes Moist - Respiratory Exam Respiratory Exam: Clear to Ausculation Bilateral. absent: Accessory Muscle Use , Wheezes - Cardiovascular Exam Cardiovascular Exam: +S1, +S2. absent: Murmur - GI/Abdominal Exam GI & Abdominal Exam: Soft. absent: Tenderness - Extremities Exam Extremities Exam: absent: Calf Tenderness, Pedal Edema - Neurological Exam Neurological Exam: Alert, Awake, Oriented x3 Assessment and Plan - Assessment and Plan (Free Text) Assessment: 41 y/o female with PMHx of metabolic syndrome and intermittent asthma admitted to hospital for community-acquired pneumonia and lactic acidosis. Clinically doing better. Plan: 1) Community-Acquired Pneumonia, Resolving -CXR exhibits focal right lower lobe infiltrate b/n 7th and 8th ribs -CXR repeated this morning, stable appearing -afebrile, WBC WNL -Lactate 2.9->3.6 ->2.2 -> 1.1 with IV hydration -BUN/Cr WNL -Influenza/strep: neg/neg -BCx no growth after 48 hrs -Strep Cx negative -f/u procalcitonin, Mycoplasma IgM, Legionella Ag urine -c/w Duoneb 3mL PRN -c/w Tylenol 650mg PRN fever, headache -c/w Ceftriaxone 1gm IV QD -c/w Azithromycin 500mg IV QD -VSS, will continue to monitor Plan: Discharge today 2) Intermittent Asthma, Aute Exacerbation -Duoneb PRN Q6H, clinically improving -Prednisone 40mg daily added -singular 10mg HS added 3) DVT Prophylaxis: -c/w Lovenox 40mg SC QD -c/w ambulation on floors
[2017-04-16] MEDS: Enoxaparin 40 mg Syringe SC SCH (13:05)
--- NOTE | 2017-04-16 15:49 | CP.PCM.DIS ---
Provider - Provider Date of Admission: 04/13/17 16:36 Attending physician: Anastasiia Gomes MD Time Spent in preparation of Discharge (in minutes): 30 Hospital Course - Lab Results Lab Results: Micro Results 04/13/17 16:20 Blood-Venous Blood Culture - Preliminary NO GROWTH AFTER 48 HOURS 04/13/17 15:00 Throat Group A Strep Throat Culture - Final NO BETA STREP GROUP A ISOLATED. Most Recent Lab Values WBC 9.9 K/uL (4.8-10.8) 04/14/17 05:20 RBC 4.10 Mil/uL (3.80-5.20) 04/14/17 05:20 Hgb 11.1 g/dL (12.0-16.0) L 04/14/17 05:20 Hct 33.9 % (34.0-47.0) L 04/14/17 05:20 MCV 82.8 fl (81.0-99.0) 04/14/17 05:20 MCH 27.2 pg (27.0-31.0) 04/14/17 05:20 MCHC 32.8 g/dL (33.0-37.0) L 04/14/17 05:20 RDW 14.9 % (11.5-14.5) H 04/14/17 05:20 Plt Count 304 K/uL (130-400) 04/14/17 05:20 MPV 8.6 fl (7.2-11.7) 04/13/17 15:43 Neut % (Auto) 62.7 % (50.0-75.0) 04/13/17 15:43 Lymph % (Auto) 24.3 % (20.0-40.0) 04/13/17 15:43 [place] % (Auto) 8.0 % (0.0-10.0) 04/13/17 15:43 Eos % (Auto) 4.4 % (0.0-4.0) H 04/13/17 15:43 Baso % (Auto) 0.6 % (0.0-2.0) 04/13/17 15:43 Neut # 6.2 K/uL (1.8-7.0) 04/13/17 15:43 Lymph # 2.4 K/uL (1.0-4.3) 04/13/17 15:43 [place] # 0.8 K/uL (0.0-0.8) 04/13/17 15:43 Eos # 0.4 K/uL (0.0-0.7) 04/13/17 15:43 Baso # 0.1 K/uL (0.0-0.2) 04/13/17 15:43 pO2 75 mm/Hg (30-55) H 04/13/17 20:50 VBG pH 7.39 (7.32-7.43) 04/13/17 20:50 VBG pCO2 32 mmHg (40-60) L 04/13/17 20:50 VBG HCO3 21.3 mmol/L 04/13/17 20:50 VBG Total CO2 20.4 mmol/L (22-28) L 04/13/17 20:50 VBG O2 Sat (Calc) 97.6 % (40-65) H 04/13/17 20:50 VBG Base Excess -4.6 mmol/L (0.0-2.0) L 04/13/17 20:50 VBG Potassium 3.8 mmol/L (3.6-5.2) 04/13/17 20:50 A-a O2 Difference 41.0 mm/Hg 04/13/17 16:27 Sodium 142.0 mmol/L (132-148) 04/13/17 20:50 Chloride 111.0 mmol/L (98-107) H 04/13/17 20:50 Glucose 186 mg/dL (65-105) H 04/13/17 20:50 Lactate 3.6 mmol/L (0.7-2.1) H 04/13/17 20:50 FiO2 21.0 % 04/13/17 20:50 Sodium 141 mmol/l (132-148) 04/14/17 05:20 Potassium 4.5 MMOL/L (3.6-5.0) 04/14/17 05:20 Chloride 110 mmol/L (98-107) H 04/14/17 05:20 Carbon Dioxide 21 mmol/L (22-30) L 04/14/17 05:20 Anion Gap 15 (10-20) 04/14/17 05:20 BUN 6 mg/dl (7-17) L 04/14/17 05:20 Creatinine 0.5 mg/dl (0.7-1.2) L 04/14/17 05:20 Est GFR ( Amer) > 60 04/14/17 05:20 Est GFR (Non-Af Amer) > 60 04/14/17 05:20 Random Glucose 147 mg/dL (65-105) H 04/14/17 05:20 Lactic Acid 1.1 MMOL/L (0.7-2.1) 04/15/17 05:20 Calcium 9.0 mg/dL (8.4-10.2) 04/14/17 05:20 Total Bilirubin 0.2 mg/dl (0.2-1.3) 04/14/17 05:20 AST 18 U/L (14-36) 04/14/17 05:20 ALT 30 U/L (9-52) 04/14/17 05:20 Alkaline Phosphatase 67 U/L (38-126) 04/14/17 05:20 Total Protein 6.9 G/DL (6.3-8.2) 04/14/17 05:20 Albumin 4.0 g/dL (3.5-5.0) 04/14/17 05:20 Globulin 3.0 gm/dL (2.2-3.9) 04/14/17 05:20 Albumin/Globulin Ratio 1.3 (1.0-2.1) 04/14/17 05:20 Procalcitonin < 0.05 NG/ML (0.19-0.49) L 04/13/17 05:20 Venous Blood Potassium 3.8 mmol/L (3.6-5.2) 04/13/17 20:50 Influenza Typ A,B (EIA) Negative for flu a/b (NEGATIVE) 04/13/17 15:00 Grp A Beta Strep Ag Negative (NEGATIVE) 04/13/17 15:00 - Hospital Course Hospital Course: Discharge Diagnosis: Community Acquired Pneumonia Hospital Course: 41 y/o female with PMHx of Metabolic Syndrome and Intermittent Asthma presented to hospital with progressive dry cough and as admitted for Sepsis secondary to CAP. Patient was found to have an elevated white count and lactic acid level. She was treated with Vancomycin, Zosyn, and Azithromzycin. Her leukocytosis and lactic acidosis resolved. Pt was discharged on ABX and Asthma medication. Discharge Medications: Prednisone 40mg PO x 4 days Advair 250/50 inhaled q12 Montaleukast 10mg PO qpm Azithromycin 500mg on day 1 and 250mg 2-5 days Condition upon discharge: Fair Activity upon discharge: Ambulating Instructions: Please follow up with PMD withing 1 week. Discharge Exam - Head Exam Head Exam: NORMAL INSPECTION - Eye Exam Eye Exam: Normal appearance - ENT Exam ENT Exam: Mucous Membranes Moist - Respiratory Exam Respiratory Exam: Clear to PA & Lateral. absent: Accessory Muscle Use, Wheezes , Respiratory Distress - Cardiovascular Exam Cardiovascular Exam: REGULAR RHYTHM, +S1, +S2. absent: Systolic Murmur - Neurological Exam Neurological exam: Alert, Oriented x3 - Psychiatric Exam Psychiatric exam: Normal Affect Discharge Plan - Discharge Medications Prescriptions: Montelukast [Singulair] 10 mg PO HS #30 tab predniSONE [predniSONE Tab] 40 mg PO DAILY 4 Days #20 tab - Follow Up Plan Condition: FAIR Disposition: HOME/ ROUTINE Instructions: Sepsis (DC), Sepsis (GEN), Community Acquired Pneumonia (DC), Community Acquired Pneumonia (GEN) Referrals: Ashleigh Hong MD [Staff Provider] -
== END 2017-04-16 16:40 | disposition home or self-care (01) | DRG 89 ==
LOC: H.ER 14:45 → H.ERHOLD 16:36 → H.TEL 19:05 → H.MEDSURG1 04-15 13:51
PROVIDERS: ADMIT Family Medicine Geriatric Medicine; ATTEND Family Medicine Geriatric Medicine
DX: J18.9 Pneumonia, unspecified organism (principal); E87.2 Acidosis; E88.81 Metabolic syndrome and other insulin resistance; E55.9 Vitamin D deficiency, unspecified; J45.21 Mild intermittent asthma with (acute) exacerbation; Z87.891 Personal history of nicotine dependence; Z98.51 Tubal ligation status

== ENCOUNTER 2017-11-23 15:32 | Emergency (ER) | payer MEDICAID ==
[2017-11-23 15:33] VITALS: BMI 33.6
[2017-11-23 15:45] VITALS: RESP 22
[2017-11-23] MEDS ORDERED: Albuterol-Ipratrop 3 mg / 0.5 (3 ml) UD INH STA (16:26)
--- NOTE | 2017-11-23 16:35 | ED PDOC ---
HPI: SOB/CHF/COPD <Nalini Serrato Y - Last Filed: 11/23/17 17:32> Chief Complaint (Provider): Respiratory distress History Per: Patient History/Exam Limitations: no limitations Onset/Duration Of Symptoms: Days (3) Current Symptoms Are (Timing): Still Present Initiating Event: Possible Allergic Reaction Quality: Pressure Current Respiratory Medications: Albuterol, Steroid Inhaler Severity: Moderate Pain Scale Rating Of: 5 Associated Symptoms: Chest Pain, Light-headedness. denies: Fever, Chills, Sweating Recently: Treated By A Physician Additional History Per: Patient <Ketan Monte - Last Filed: 11/23/17 18:09> Time Seen by Provider: 11/23/17 16:13 Chief Complaint (Nursing): Respiratory Distress Additional Complaint(s): Pt is a 42 yo f with PMH of asthma, Gestational DM present today due to asthma exacerbation. Pt state that was having SOB due to her asthma for the past 3 days. She state she had to use both of her inhalor ( ventolin and symbicort) 3 to 5 time a day and with no full alleviation. Pt state that she never had this symptoms before, she rarely have her asthma decontrolled and her doctor recently switch her from Ventolin to Symbicort. Pt also state that shes having a chest pain mostly on the middle, and B/L costal sides worst on the left and pain in the abdomen, Pt state that it most likely due to the dry cough that she has been having. Pt denies dizziness, N/V, diarrhea, constipation, dysuria, but state that she is having polyuria for past couple of days. Pt denies having new animal, or chemical product around the house, Pt denies smoking or anyone smoke at the house at the moment. PCP PMH: asthma GDM PSH: foot surgery at 10yo LMP: November 09 social : former smoker (Ketan Monte) Past Medical History <Nalini Serrato - Last Filed: 11/23/17 17:32> - Medical History PMH: Asthma, Hypercholesterolemia (borderline), Pneumonia Denies: Chronic Kidney Disease - Surgical History Surgical History: - Family History Family History: States: Diabetes - Immunization History Hx Tetanus Toxoid Vaccination: No Hx Influenza Vaccination: No Hx Pneumococcal Vaccination: No <Radha Montef - Last Filed: 11/23/17 18:09> Vital Signs: Last Vital Signs Temp 98.4 F 11/23/17 17:56 Pulse 63 11/23/17 17:56 Resp 22 11/23/17 17:56 BP 106/70 11/23/17 17:56 Pulse Ox 99 11/23/17 17:56 - Home Medications Home Medications: Ambulatory Orders Medication Instructions Recorded Albuterol HFA [Ventolin HFA 90 1 puff INH PRN PRN 04/13/17 mcg/actuation (8 g)] Montelukast [Singulair] 10 mg PO HS #30 tab 04/16/17 predniSONE [predniSONE Tab] 40 mg PO DAILY 4 Days #20 tab 04/16/17 Albuterol 0.083% [Albuterol 3 ml IH Q4H PRN #10 neb 11/23/17 Sulfate 3 Ml] predniSONE [Prednisone] 40 mg PO DAILY #8 tab 11/23/17 - Allergies Allergies/Adverse Reactions: Allergies Allergy/AdvReac Type Severity Reaction Status Date / Time No Known Allergies Allergy Verified 11/23/17 15:40 Curb-65 Severity Score - CURB-65 Severity Score Confusion: No Bun >19mg/dl (>7mmol/L): No Respiratory Rate greater than/equal to 30: No Systolic BP <90 or Diastolic BP less than/equal 60mmHg: No Age >64: No Curb-65 Score: 0 Percentage 30-day mortality: 0.6% <Xochitl JoshuapiedadKetan - Last Filed: 11/23/17 18:09> Wells Criteria for PE - Wells Criteria for Pulmonary Embolism Clinical Signs and Symptoms of DVT: No P.E is #1 Diagnosis, or Equally Likely: No Heart Rate >100: No Immobilization at least 3 days;Surgery previous 4 weeks: No Previous, objectively diagnosed PE or DVT: No Hemoptysis: No Malignancy w/treatment within 6 months, or palliative: No Total Score: 0 <Xochitl JoshuaKetan herbert - Last Filed: 11/23/17 18:09> Review of Systems ROS Statement: Except As Marked, All Systems Reviewed And Found Negative Constitutional: Negative for: Fever, Chills, Sweats Eyes: Negative for: Pain Cardiovascular: Positive for: Chest Pain. Negative for: Palpitations Respiratory: Positive for: Shortness of Breath Gastrointestinal: Positive for: Abdominal Pain. Negative for: Nausea, Vomiting , Diarrhea, Constipation Genitourinary Female: Positive for: Frequency. Negative for: Dysuria Neurological: Positive for: Weakness. Negative for: Confusion, Dizziness <Ketan Monte - Last Filed: 11/23/17 18:09> Physical Exam - Reviewed Nursing Documentation Reviewed: Yes Vital Signs Reviewed: Yes - Physical Exam Appears: Positive for: Well, Non-toxic, No Acute Distress Head Exam: Positive for: ATRAUMATIC, NORMAL INSPECTION, NORMOCEPHALIC Skin: Positive for: Normal Color, Warm, Dry Eye Exam: Positive for: Normal appearance ENT: Positive for: Normal ENT Inspection Cardiovascular/Chest: Positive for: Regular Rate, Rhythm Respiratory: Positive for: Normal Breath Sounds. Negative for: Stridor, Wheezing, Respiratory Distress Gastrointestinal/Abdominal: Positive for: Normal Exam, Bowel Sounds, Soft. Negative for: Tenderness Neurologic/Psych: Positive for: Alert, Oriented, Mood/Affect <Xochitl CalderonKetan - Last Filed: 11/23/17 18:09> - Laboratory Results Result Diagrams: 11/23/17 16:37 11/23/17 16:37 <Nalini Serrato Y - Last Filed: 11/23/17 17:32> - Laboratory Results Result Diagrams: 11/23/17 16:37 11/23/17 16:37 - ECG O2 Sat by Pulse Oximetry: 98 <Xochitl CalderonKetan - Last Filed: 11/23/17 18:09> Medical Decision Making <Nalini Serrato Y - Last Filed: 11/23/17 17:32> <Xochitl CalderonKetan - Last Filed: 11/23/17 18:09> Medical Decision Making: Note: 42 year old female with a history of asthma presents to the ED for asthma exacerbation. Patient reports she is feeling better now and will be discharged soon. Vitals within normal limits. Scribe Attestation: Documented by Beatriz Costa, acting as a scribe for Nalini Serrato MD Provider Scribe Attestation: All medical record entries made by the Scribe were at my direction and personally dictated by me. I have reviewed the chart and agree that the record accurately reflects my personal performance of the history, physical exam, medical decision making, and the department course for this patient. I have also personally directed, reviewed, and agree with the discharge instructions and disposition. (AmaNalini Y) Time 16:47 PT is 42 yo f present due to asthma attack PT is laying comfortable with no acute distress vital WNL Plan CMP CBC Chest xray Duoneb 3ml inh Peak flow Pre Urinalysis Time 17:12 Pt is 42 yo f present with asthma attack Pt is feeling better, she does not have SOB, She is breathing comfortable and feel ready to go home Labs are WNL Chest Xray : no acute disease Urinalysis : no sign of infection or disease Plan: Educate pt about asthma exacerbation Educate pt about how to use the INH Hand out educative material about asthma Discharge, should follow with her PCP in 1 week, if symptoms are back or persist more than 3 day pt should come back to ER (Ketan Monte) Disposition <AmaNalini Y - Last Filed: 11/23/17 17:32> - Disposition Disposition Time: 18:00 <Ketan Monte - Last Filed: 11/23/17 18:09> - Clinical Impression Clinical Impression: Asthma - Disposition Referrals: [facility] [Outside] [facility] [Outside] Condition: IMPROVED Additional Instructions: continue using your nebulizer at home follow up in the clinic in 1-2 days for reevaluation take steroids as instructed return to the ED with any worsening or concerning symptoms Prescriptions: Albuterol 0.083% [Albuterol Sulfate 3 Ml] 3 ml IH Q4H PRN #10 neb PRN Reason: Wheezing predniSONE [Prednisone] 40 mg PO DAILY #8 tab Instructions: Asthma, Adult (DC) Forms: [employer] ([place])
[2017-11-23] MEDS ORDERED: Albuterol-Ipratrop 3 mg / 0.5 (3 ml) UD ONE (16:37)
[2017-11-23 16:51] LABS: BASO # 0.1 K/uL (0.0-0.2); BASO % 0.6 % (0.0-2.0); EOS # 0.2 K/uL (0.0-0.7); EOS % 2.4 % (0.0-4.0); HEMOGLOBIN 11.8 g/dL (12.0-16.0); LYMPH # 2.4 K/uL (1.0-4.3); LYMPH % 25.3 % (20.0-40.0); MEAN CELL VOLUME 77.9 fl (81.0-99.0); MEAN CORPUSCULAR HEMOGLOBIN 26.2 pg (27.0-31.0); MEAN CORPUSCULAR HGB CONC 33.6 g/dL (33.0-37.0); MEAN PLATELET VOLUME 8.7 fl (7.2-11.7); MONO # 0.7 K/uL (0.0-0.8); MONO % 7.6 % (0.0-10.0); NEUT # 6.1 K/uL (1.8-7.0); NEUT % 64.1 % (50.0-75.0); NRBC % 0.1 % (0.0-0.0); RBC 4.51 Mil/uL (3.80-5.20); RED CELL DISTRIBUTION WIDTH 16.3 % (11.5-14.5); WHITE BLOOD COUNT 9.6 K/uL (4.8-10.8)
[2017-11-23 16:56] LABS: SQUAMOUS EPITHIAL 2 /hpf (0-5); URINE BILIRUBIN NEGATIVE (NEGATIVE); URINE BLOOD NEGATIVE (NEGATIVE); URINE CLARITY SLIGHTY-CLOUDY (Clear); URINE COLOR YELLOW (YELLOW); URINE GLUCOSE (UA) NEG (Normal); URINE LEUKOCYTE ESTERASE NEG Leu/uL (Negative); URINE PROTEIN NEGATIVE (NEGATIVE); URINE UROBILINOGEN 0.2-1.0 mg/dL (0.2-1.0)
[2017-11-23 17:02] LABS: ALB/GLOB RATIO 1.3 (1.0-2.1); ALBUMIN 4.2 g/dL (3.5-5.0); ALT/SGPT 28 U/L (9-52); AST/SGOT 21 U/L (14-36); BLOOD UREA NITROGEN 7 mg/dl (7-17); CALCIUM 9.5 mg/dL (8.4-10.2); GFR AFRICAN-AMERICAN > 60; GFR NON-AFRICAN AMERICAN > 60
--- NOTE | 2017-11-23 17:34 | RAD ---
Date of service: 11/23/2017 HISTORY: short of breath COMPARISON: No prior. TECHNIQUE: Chest PA and lateral FINDINGS: LUNGS: No active pulmonary disease. PLEURA: No significant pleural effusion identified. No pneumothorax apparent. CARDIOVASCULAR: Normal. OSSEOUS STRUCTURES: No significant abnormalities. VISUALIZED UPPER ABDOMEN: Normal. OTHER FINDINGS: None. IMPRESSION: No active disease.
[2017-11-23 17:57] VITALS: BP 106/70; PULSE 63; TEMP 98.4
[2017-11-23 18:10] VITALS: O2SAT 98
== END 2017-11-23 18:00 | disposition home or self-care (01) ==
LOC: H.ER 15:32
DX: J45.901 Unspecified asthma with (acute) exacerbation (principal); E78.00 Pure hypercholesterolemia, unspecified